=== PATIENT | male | born 1975 | race Two or more races ===

== ENCOUNTER 2016-09-13 09:32 | Day surgery (SDC) | payer BC ==
[2016-09-13] VITALS (10 sets, daily range): BP systolic 101–133; BP diastolic 53–83; PULSE 73–90; RESP 16–20; Ht 180.3 cm; Wt 109.0 kg
[~2016-09-13] VITALS: Ht 180.3 cm; Wt 109.0 kg
[2016-09-13] MEDS ORDERED: CEFAZOLIN 2 GM/50 ML (PMX) 50 ML IVPB ONE (10:30)
[2016-09-13] MEDS ORDERED: SOD CHLORIDE 0.9% 1,000 ML IV SCH (10:30)
[2016-09-13] MEDS ORDERED: BUPIVACAINE 0.25% (MPF) 30 ML INJ ONE (11:48)
[2016-09-13] MEDS ORDERED: PROPOFOL 20 ML ONE (12:14)
[2016-09-13] MEDS ORDERED: MIDAZOLAM 1 MG/ML 2 ML INJ ONE (12:14)
[2016-09-13] MEDS ORDERED: SUCCINYLCHOLINE CHLORIDE 100 MG/5 ML SYG IV ONE (12:14)
[2016-09-13] MEDS ORDERED: FENTAnyl 50 MCG/ML VIAL ONE (12:14)
[2016-09-13] MEDS ORDERED: LIDOCAINE 1% (MDV) 20 ML INJ ONE (12:14)
[2016-09-13] MEDS ORDERED: ONDANSETRON 4 MG INJ ONE (12:38)
[2016-09-13] MEDS ORDERED: DEXAMETHASONE 4 MG/ML 1 ML INJ ONE (12:39)
[2016-09-13] MEDS ORDERED: FAMOTIDINE 20 MG INJ ONE (12:39)
[2016-09-13] MEDS ORDERED: CEFAZOLIN 1 GM INJ ONE ×2 (12:42→12:43)
[2016-09-13] MEDS ORDERED: KETOROLAC 30 MG INJ ONE (13:00)
[2016-09-13] MEDS ORDERED: HYDROCODONE/APAP (5/325) TAB PO ONE (13:30)
[2016-09-13] MEDS ORDERED: MEPERIDINE 25 MG INJ IV PRN (13:30)
[2016-09-13] MEDS ORDERED: HYDROmorphONE (0.2 MG/ML) 10ML SYG IV PRN ×2 (13:30)
[2016-09-13] MEDS ORDERED: DIPHENHYDRAMINE 50 MG INJ IV PRN (13:30)
--- NOTE | 2016-09-13 14:03 | OPR ---
DATE OF OPERATION: 09/13/2016 INDICATION: This is a 40-year-old male with a very large pilonidal cyst. He requests surgical repair. Risks, alternatives, benefits, and personnel were discussed with the patient. The patient expressed understanding and consents to the operation. PREOPERATIVE DIAGNOSIS: Pilonidal cyst. POSTOPERATIVE DIAGNOSIS: Pilonidal cyst. OPERATION PERFORMED: 1. Extremely large pilonidal cystectomy with 20 cm x 5 cm size lesion and 20 cm size incision. 2. Localized adjacent tissue transfer of 100 square cm with the use of skin flaps. SURGEON: Daniel Matamoros MD SPECIMEN: Pilonidal cyst. COMPLICATIONS: None. ANESTHESIA: General. PROCEDURE: The patient was taken to the OR and prepped and draped in the usual sterile fashion. Surgical timeout was performed. IV antibiotics were given. Elliptical incision made with a 10 blade. Dissection cautery was carried down to the bone. The pilonidal cyst was excised. There was good hemostasis. Due to the very large tissue defect, localized adjacent tissue transfer with the use of skin flaps was performed. Multilayer closed with interrupted 2-0 Vicryl and interrupted 2-0 nylon for the skin. Local anesthesia was injected. Dry dressings were applied. Dictated By: DANIEL FRANCO/JACKI Conf#: [id number] DID#: [id number]
== END 2016-09-13 18:06 | disposition home or self-care (01) ==
LOC: SDS 09:32
PROVIDERS: ATTEND Surgery
DX: L05.91 Pilonidal cyst without abscess (principal)
CPT/HCPCS: 11772; 88304; J0330; J0690; J1100; J1885; J2250; J2405; J3010; Z7512; Z7610